=== PATIENT | male | born 1970 | race Caucasian/White ===

== ENCOUNTER 2018-03-02 18:38 | Inpatient (IN) | END 2018-03-08 18:24 | disposition home or self-care (01) | DRG 854 ==

== ENCOUNTER 2018-03-10 13:41 | Emergency (ER) | END 2018-03-10 20:22 | disposition home or self-care (01) ==

== ENCOUNTER 2018-03-13 04:22 | Emergency (ER) | END 2018-03-13 05:19 | disposition home or self-care (01) ==

== ENCOUNTER 2018-03-16 16:15 | Inpatient (IN) | END 2018-03-24 21:10 | disposition home health service (06) | DRG 854 ==